=== PATIENT | male | born 1945 | race African-American/Black ===

== ENCOUNTER 2018-02-14 06:40 | Emergency (ER) | payer MEDICARE, MEDICAID ==
[2018-02-14] MEDS ORDERED: Amoxicillin/Clavulanate TAB* 875 MG PO ONE ×2 (07:02→07:09)
[2018-02-14 07:18] VITALS: BP 142/100
--- NOTE | 2018-02-14 07:19 | ED ---
Throat Pain/Nasal Congestion - HPI Summary HPI Summary: Patient is a 72-year-old male presenting to the ED with bilateral ear pain, worse to the right side with sinus pressure and nasal congestion and mucus in the throat 4-5 days. He states he's never had this in the past. He does endorse cold symptoms, endorsing some chills and sweats with subjective fevers. He denies any other concerns at this time. Denies any CP or SOB. - History of Current Complaint Chief Complaint: EDEarPain Hx Obtained From: Patient Onset/Duration: Sudden Onset Severity: Moderate Associated Signs And Symptoms: Positive: Negative - Epiglottits Risk Factors Epiglottis Risk Factors: Negative - Allergies/Home Medications Allergies/Adverse Reactions: Allergies Allergy/AdvReac Type Severity Reaction Status Date / Time No Known Allergies Allergy Verified 02/14/18 06:43 PMH/Surg Hx/FS Hx/Imm Hx Previously Healthy: Yes Endocrine/Hematology History: Denies: Hx Diabetes, Hx Thyroid Disease Cardiovascular History: Denies: Hx Hypertension Respiratory History: Denies: Hx Asthma, Hx Chronic Obstructive Pulmonary Disease (COPD) GI History: Denies: Hx Ulcer - Immunization History Hx Pertussis Vaccination: No Immunizations Up to Date: Yes Infectious Disease History: No Infectious Disease History: Denies: Hx Hepatitis, Hx Human Immunodeficiency Virus (HIV), Traveled Outside the [place] in Last 30 Days - Family History Known Family History: Positive: None - Social History Occupation: Unemployed Lives: With Family Alcohol Use: None Hx Substance Use: No Substance Use Type: Reports: None Hx Tobacco Use: No Smoking Status (MU): Never Smoked Tobacco Review of Systems Positive: Fever, Chills, Fatigue Negative: Diplopia, Drainage, Erythema Positive: Ear Ache - bilateral, Nasal Discharge. Negative: Dental Pain, Sore Throat Negative: Palpitations, Chest Pain Negative: Shortness Of Breath, Cough Musculoskeletal: Negative Neurological: Negative All Other Systems Reviewed And Are Negative: Yes Physical Exam Triage Information Reviewed: Yes Vital Signs On Initial Exam: Initial Vitals Temp Pulse Resp BP Pulse Ox 98.3 F 94 18 122/84 98 02/14/18 06:41 02/14/18 06:41 02/14/18 06:41 02/14/18 06:41 02/14/18 06:41 Vital Signs Reviewed: Yes Appearance: Positive: Well-Appearing, Well-Nourished Skin: Positive: Warm, Skin Color Reflects Adequate Perfusion Head/Face: Positive: Normal Head/Face Inspection Eyes: Positive: EOMI, PAUL, Conjunctiva Clear ENT: Positive: Nasal congestion, Nasal drainage, TM red, Sinus tenderness. Negative: Pharyngeal erythema, Tonsillar swelling, Tonsillar exudate Neck: Positive: Supple, No Lymphadenopathy Respiratory/Lung Sounds: Positive: Clear to Auscultation, Breath Sounds Present Cardiovascular: Positive: RRR, Pulses are Symmetrical in both Upper and Lower Extremities Musculoskeletal: Positive: Normal, Strength/ROM Intact Neurological: Positive: Speech Normal Psychiatric: Positive: Normal, Affect/Mood Appropriate AVPU Assessment: Alert Diagnostics - Vital Signs Vital Signs Temp Pulse Resp BP Pulse Ox 02/14/18 06:41 98.3 F 94 18 122/84 98 - Laboratory Lab Statement: Any lab studies that have been ordered have been reviewed, and results considered in the medical decision making process. EENT Course/Dx - Course Course Of Treatment: Patient is evaluated for possible ear infection. Bilateral TMs with slight erythema without pus pocket or drainage. Positive cone of light to the left ear, unable to visualize the cone of light to the right ear, with some cerumen obstructing. Patient denies any decreased hearing. No pharyngeal erythema. Mucous in the posterior pharynx. Patient is given Augmentin in the ED as well as 1 for discharge home as this is a holiday. He is also given a prescription for home. - Diagnoses Provider Diagnoses: Otitis media, Sinusitis Discharge - Sign-Out/Discharge Documenting (check all that apply): Patient Departure - Discharge Plan Condition: Stable Disposition: HOME Prescriptions: Amoxicillin/Clavulanate TAB* [Augmentin TAB 875*] 875 mg PO BID #14 tab Patient Education Materials: Earache (ED) Referrals: No Primary Care Phys,NOPCP [Primary Care Provider] - Additional Instructions: Augmentin twice daily x 7 days Please follow up with PCP if symptoms worsen - Billing Disposition and Condition Condition: STABLE Disposition: Home
== END 2018-02-14 07:17 | disposition home or self-care (01) ==
LOC: ED 06:40
DX: H66.90 Otitis media, unspecified, unspecified ear (principal); J32.9 Chronic sinusitis, unspecified; H92.03 Otalgia, bilateral; R50.9 Fever, unspecified; R53.83 Other fatigue
CPT/HCPCS: 99282; A9270-GY